=== PATIENT | female | born 1960 | race Caucasian/White ===

== ENCOUNTER 2017-07-07 11:00 | Emergency (ER) | payer OTHER ==
[~2017-07-07] VITALS: Ht 165.1 cm; Wt 69.8 kg
[~2017-07-07 11:00] MED LIST: CALC500C3 PO
[2017-07-07 11:05] VITALS: TEMP 36.7; Ht 165.1 cm; Wt 69.8 kg
[2017-07-07] MEDS ORDERED: LORAZEPAM 1 MG TAB SL STA (11:28)
--- NOTE | 2017-07-07 12:10 | EMERGENCY ROOM VISIT NOTE ---
History First contact with patient: 11:11 Chief Complaint: HYPERTENSION Stated Complaint: HYPERTENSION, CHEST PAINS DURING LAST NIGHT Nursing Triage Summary: Pt. reports waking up around 3am this morning with chest pain, but was able to go back to sleep. She reports feeling very anxious and having a very stressful weekend. History of Present Illness The patient is a 56 year old female who presents to the Emergency Room with complaints of anxiety. She states "my blood pressure is not good". The patient states she has been dealing with some personal, family issues over the weekend, and has been feeling extremely anxious and worked up over that. She states she has been feeling like she is falling apart. The patient states in the middle the night, she awoke with sharp, stabbing, steady chest pain going the hallway across the front of her chest. The patient states this lasted until she was able to fall back asleep a few minutes later. The patient states she did try sitting upright last night, which did help with the pain. The pain did not radiate anywhere, specifically to her jaw or shoulder. The patient states she contacted her PCP today, but was sent to the emergency department due to the chest pain she had been experiencing. She states she had a history of anxiety approximately 15 years ago, and was given a medication to take as needed. She states she never took the medication, but she felt better having it. The patient denies any associated symptoms including squeezing chest pain or pressure, difficulty breathing, sweating, recent illness, headache, dizziness , lightheadedness, syncope, numbness or tingling. She states she recently had a complete physical on June 23 where she had an EKG performed. She was told at that time that she was healthy, and states her blood pressure was 130/ 80. Patient denies any previous history with elevated blood pressure, except for when she has had anxiety in the past. She states she is concerned because her father of a heart attack at age 57. Her mother was recently diagnosed with hypertension at 80 years old. The patient believes that a big part of her mother's hypertension is family stress that there I'll experiencing. She denies any chest pain at this time. She states now she is just feeling nervous/anxious and shaky. Review of Systems A complete 10 point review of systems was reviewed with the patient with pertinent positives and negatives as per history of present illness. All else were negative. Past Medical/Surgical History Anxiety Social History Smoking Status: Former Smoker Smokeless Tobacco Use: No Alcohol Use: occasionally Drug Use: none Marital Status: Occupation Status: employed Current/Historical Medications Scheduled Calcium Carbonate (Tums), 1,000 MG PO DAILYBB Scheduled PRN Lorazepam (Ativan), 1 TAB PO Q8H PRN for Anxiety/Agitation Allergies None Physical Exam Vital Signs Date Time Temp Pulse Resp B/P (MAP) Pulse Ox O2 Delivery O2 Flow Rate FiO2 07/07/17 12:39 84 16 120/76 97 Room Air 07/07/17 12:11 77 07/07/17 12:00 73 14 133/80 98 Room Air 07/07/17 11:05 36.7 76 19 171/99 100 Room Air Physical Exam VITALS: Vitals are noted on the nurse's note and reviewed by myself. Vital signs stable. GENERAL: This is a 56-year-old white female, in no acute distress, nondiaphoretic, well-developed well-nourished. SKIN: The skin was without rashes, erythema, edema, or bruising. There is no tenting of the skin. Capillary reflex less than 2 seconds. HEAD: Normocephalic atraumatic. EARS: External auditory canals clear, tympanic membranes pearly eng without erythema or effusion bilaterally. EYES: Pupils equal round and reactive to light and accommodation. Conjunctivae without injection, sclerae without icterus. Extraocular movements intact. NOSE: Patent, turbinates without inflammation or discharge. No sinus tenderness. MOUTH: Mucous membranes moist. Tonsils are not enlarged. Pharynx without erythema or exudate. Uvula midline. Airway patent. Tongue does not deviate. NECK: Supple without nuchal rigidity. No lymphadenopathy. No thyromegaly. Cervical spine is nontender. No JVD. HEART: Regular rate and rhythm without murmurs gallops or rubs. LUNGS: Clear to auscultation bilaterally without wheezes, rales or rhonchi. No dullness to percussion. No retractions or accessory muscle use. ABDOMEN: Positive bowel sounds x 4. Normal tympanic percussion. Soft, nontender, without masses or organomegaly. Cheatham sign negative. No guarding or rebound tenderness. MUSCULOSKELETAL: No muscle atrophy, erythema, or edema noted. Full range of motion without joint tenderness in all extremities. No tenderness to palpation , specifically, no chest or back tenderness on palpation. Normal gait. Strength 5/5 throughout. NEURO: Patient was alert and oriented to person place and time. Normal sensation to light and sharp touch. Deep tendon reflexes 2+ throughout. No focal neurological deficits. Medical Decision & Procedures ER Provider Diagnostic Interpretation: CXR: CHEST 2 VIEWS ROUTINE CLINICAL HISTORY: Chest pain. COMPARISON STUDY: No previous studies for comparison. FINDINGS: The lung volumes are normal. No pneumothorax or pleural effusion is present. Pulmonary vascularity is normal. Cardiomediastinal silhouette is normal. There is no consolidation. IMPRESSION: No acute cardiopulmonary findings. LABS: CBC was without leukocytosis, anemia, thrombocytopenia. CMP showed no significant electrolyte abnormalities. Renal and hepatic function testing was normal. TSH did not show acute abnormalities. CK-MB and Troponin testing was negative. Laboratory Results 07/07/17 11:55 Red Blood Count 4.91, Mean Corpuscular Volume 86.8, Mean Corpuscular Hemoglobin 28.9, Mean Corpuscular Hemoglobin Concent 33.3, Mean Platelet Volume 10.2, Neutrophils (%) (Auto) 68.7, Lymphocytes (%) (Auto) 22.1, Monocytes (%) (Auto) 8.3, Eosinophils (%) (Auto) 0.5, Basophils (%) (Auto) 0.2, Neutrophils # (Auto) 4.20, Lymphocytes # (Auto) 1.35, Monocytes # (Auto) 0.51, Eosinophils # (Auto) 0.03, Basophils # (Auto) 0.01 07/07/17 11:55 Test 07/07/17 11:28 07/07/17 11:55 Creatine Kinase MB Ratio (0-3.0) White Blood Count 6.11 K/uL (4.8-10.8) Red Blood Count 4.91 M/uL (4.2-5.4) Hemoglobin 14.2 g/dL (12.0-16.0) Hematocrit 42.6 % (37-47) Mean Corpuscular Volume 86.8 fL (80-100) Mean Corpuscular Hemoglobin 28.9 pg (25-34) Mean Corpuscular Hemoglobin Concent 33.3 g/dl (32-36) Platelet Count 233 K/uL (130-400) Mean Platelet Volume 10.2 fL (7.4-10.4) Neutrophils (%) (Auto) 68.7 % Lymphocytes (%) (Auto) 22.1 % Monocytes (%) (Auto) 8.3 % Eosinophils (%) (Auto) 0.5 % Basophils (%) (Auto) 0.2 % Neutrophils # (Auto) 4.20 K/uL (1.4-6.5) Lymphocytes # (Auto) 1.35 K/uL (1.2-3.4) Monocytes # (Auto) 0.51 K/uL (0.11-0.59) Eosinophils # (Auto) 0.03 K/uL (0-0.5) Basophils # (Auto) 0.01 K/uL (0-0.2) RDW Standard Deviation 40.3 fL (36.4-46.3) RDW Coefficient of Variation 12.6 % (11.5-14.5) Immature Granulocyte % (Auto) 0.2 % Immature Granulocyte # (Auto) 0.01 K/uL (0.00-0.02) Anion Gap 5.0 mmol/L (3-11) Est Creatinine Clear Calc Drug Dose 66.2 ml/min Estimated GFR () 80.1 Estimated GFR (Non- 69.1 BUN/Creatinine Ratio 8.1 (10-20) Calcium Level 9.7 mg/dl (8.5-10.1) Total Bilirubin 0.4 mg/dl (0.2-1) Aspartate Amino Transf (AST/SGOT) 11 U/L (15-37) Alanine Aminotransferase (ALT/SGPT) 23 U/L (12-78) Alkaline Phosphatase 84 U/L (45-117) Creatine Kinase MB 0.6 ng/ml (0.5-3.6) Troponin I < 0.015 ng/ml (0-0.045) Total Protein 7.4 gm/dl (6.4-8.2) Albumin 4.1 gm/dl (3.4-5.0) Globulin 3.3 gm/dl (2.5-4.0) Albumin/Globulin Ratio 1.2 (0.9-2) Thyroid Stimulating Hormone (TSH) 1.070 uIu/ml (0.300-4.500) Medications Administered Medications (Trade) Dose Ordered Sig/Chan Route Start Time Stop Time Status Last Admin Dose Admin Lorazepam (Ativan Tab) 1 mg NOW STAT SL 07/07/17 11:28 07/07/17 11:34 DC 07/07/17 11:53 1 MG ECG Indication: chest pain Rate (beats per minute): 72 Rhythm: normal sinus Findings: RBBB Comparison ECG Date: EKG from the [facility] in [place] performed 06/23/17 Change: no significant change Medical Decision The patient presented today with anxiety symptoms associated with chest pain and hypertension. Patient is not currently having any symptoms. The patient does have a family history of PA resulting in at age 57 of her father. She states she does have a history of anxiety which has presented similarly in the past, however she has not had this problem in 15 years. The patient has been going through a significant amount of stress, and is now concerned that her symptoms could be related to her heart. Because of all of this history and the patient's symptoms, a cardiac workup was initiated. The patient's workup does not reveal any cardiac abnormalities, with the exception of the right bundle branch block noted on EKG. I did compare this to the patient's previous EKG, and did note the same findings. I did encourage the patient to follow up with a regulation supervisor and/or her PCP for further evaluation and monitoring of this condition. The patient's symptoms do appear to be consistent with anxiety , and her blood pressure and all of her symptoms did improve with sublingual Ativan in the emergency department. Differential diagnosis includes anxiety, depression, acute coronary syndrome, infectious process such as pneumonia, HTN, malignancy, and others. Medication Reconcilliation Current Medication List: was personally reviewed by me Blood Pressure Screening Blood pressure disposition: Elevated BP felt to be situational, Referred to PCP Impression Primary Impression: Anxiety Additional Impression: Right bundle branch block Departure Information Dispostion Home / Self-Care Condition GOOD Prescriptions Lorazepam (ATIVAN) 0.5 Mg Tab 1 TAB PO Q8H Y for Anxiety/Agitation, #9 TAB Prov: Nadine Chong PA-C 07/07/17 Referrals Jessica Ku D.O. (PCP) Patient Instructions ED Chest Pain NonCardiac, Generalized Anxiety Disorder, My [facility] Additional Instructions You were seen in the Emergency Department for acute anxiety associated with chest pain and hypertension. Your blood pressure did come down with 1 mg of Ativan. Cardiac workup in the emergency department did not reveal any acute findings, and I do suspect her chest pain was related to the anxiety or experiencing. On EKG, we did note a right bundle branch block. I was able to obtain the EKG which was performed at the [facility] and [place], and this was consistent with your last EKG. Please follow-up with your PCP and/or regulation supervisor for further evaluation and monitoring. You were prescribed Ativan to help with your anxiety. You may take this medication up to 3 times daily as needed for anxiety symptoms. You should not drive immediately after taking this medication. If your chest pain does not respond to Ativan in the future, please return to the emergency department for further evaluation and workup. As discussed, her workup here today does not rule out the potential for cardiac dysfunction in the future. Please follow up in 2-3 days with your PCP for recheck and further evaluation and management of your symptoms. Return to the emergency department for worsening chest pain, difficulty breathing, symptoms which she did not respond to Ativan, elevated blood pressure , or other associated symptoms. Work Instructions Return To Work: 1 day [employer]
[2017-07-07 12:31] LABS: BASO % 0.2 %; BASO ABS # 0.01 K/uL (0-0.2); COMPLETE YES; EOS % 0.5 %; HEMATOCRIT 42.6 % (37-47); IG% 0.2 %; LYMPH % 22.1 %; LYMPH ABS # 1.35 K/uL (1.2-3.4); MEAN CELL VOLUME 86.8 fL (80-100); MEAN CORPUSCULAR HEMOGLOBIN 28.9 pg (25-34); MEAN CORPUSCULAR HGB CONC 33.3 g/dl (32-36); MEAN PLATELET VOLUME 10.2 fL (7.4-10.4); MONO % 8.3 %; NEUT % 68.7 %; PLATELET COUNT 233 K/uL (130-400); RED BLOOD COUNT 4.91 M/uL (4.2-5.4); WHITE BLOOD COUNT 6.11 K/uL (4.8-10.8)
--- NOTE | 2017-07-07 12:33 | DIAGNOSTIC IMAGING REPORT ---
CHEST 2 VIEWS ROUTINE CLINICAL HISTORY: Chest pain. COMPARISON STUDY: No previous studies for comparison. FINDINGS: The lung volumes are normal. No pneumothorax or pleural effusion is present. Pulmonary vascularity is normal. Cardiomediastinal silhouette is normal. There is no consolidation. IMPRESSION: No acute cardiopulmonary findings. Electronically signed by: Bandar Tran M.D. 07/07/2017 12:31 PM Dictated Date/Time: 07/07/2017 12:30 PM
[2017-07-07 12:58] LABS: ALT/SGPT 23 U/L (12-78); AST/SGOT 11 U/L (15-37); BLOOD UREA NITROGEN 7 mg/dl (7-18); BUN/CREATININE RATIO 8.1 (10-20); CALCIUM 9.7 mg/dl (8.5-10.1); CARBON DIOXIDE 28 mmol/L (21-32); CHLORIDE 110 mmol/L (98-107); CREATININE 0.92 mg/dl (0.60-1.20); GLUCOSE 129 mg/dl (70-99); POTASSIUM 4.3 mmol/L (3.5-5.1); SODIUM 143 mmol/L (136-145)
[2017-07-07 13:08] LABS: ALB/GLOB RATIO 1.2 (0.9-2); ALKALINE PHOSPHATASE 84 U/L (45-117)
[2017-07-07] MEDS ORDERED: LORA-741 PO (13:42)
[2017-07-07 14:00] VITALS: BP 118/74; PULSE 74; O2SAT 99
== END 2017-07-07 14:00 | disposition home or self-care (01) ==
LOC: C.EDB 11:02 → C.EDC 14:00
DX: F41.9 Anxiety disorder, unspecified (principal); I45.10 Unspecified right bundle-branch block; R07.9 Chest pain, unspecified; I10 Essential (primary) hypertension; Z87.891 Personal history of nicotine dependence